=== PATIENT | female | born 1940 | race Caucasian/White ===

== ENCOUNTER 2016-06-30 18:42 | Observation (INO) | payer OTHER ==
[~2016-06-30] VITALS: Ht 167.6 cm; Wt 88.9 kg
[~2016-06-30 18:42] MED LIST: ASPI81CT89 PO; LISI-420 PO
[2016-06-30 18:43] VITALS: BP 135/75
[2016-06-30 19:57] LABS: BASOPHILS # (AUTO) 0.1 K/uL (0.00-0.22); BASOPHILS % (AUTO) 0.7 % (0.0-2.0); EOSINOPHILS # (AUTO) 0.2 K/uL (0-0.4); EOSINOPHILS % (AUTO) 1.7 % (0.0-4.0); HEMOGLOBIN 7.9 g/dL (12.0-16.0); LYMPHOCYTES # (AUTO) 3.2 K/uL (2.5-16.5); LYMPHOCYTES % (AUTO) 27.3 % (20.5-51.1); MEAN CORPUSCULAR HEMOGLOBIN 22 pg (27-31); MEAN CORPUSCULAR HGB CONC 31 g/dL (33-37); MEAN CORPUSCULAR VOLUME 71 fL (80-94); MONOCYTES # (AUTO) 0.7 K/uL (0.8-1.0); MONOCYTES % (AUTO) 6.3 % (1.7-9.3); NEUTROPHILS # (AUTO) 7.5 K/uL (1.8-7.7); PLATELET COUNT (AUTO) 389 K/uL (140-450); RED BLOOD CELL COUNT(AUTO) 3.51 MIL/uL (4.20-5.40); RED CELL DISTRIBUTION WIDTH 15.4 % (11.6-13.7); WHITE BLOOD COUNT (AUTO) 11.7 K/uL (4.8-10.8)
[2016-06-30 20:12] LABS: ANION GAP 10.9 (8-16); CHLORIDE 104 mmol/L (98-107); CREATININE 1.3 mg/dL (0.6-1.3); GLUCOSE 202 mg/dL (74-106); POTASSIUM 3.9 mmol/L (3.5-5.1); SODIUM SERUM 139 mmol/L (136-145); UREA NITROGEN, BLOOD 31 mg/dL (7-18)
[2016-06-30 20:18] LABS: ALANINE AMINOTRANSFERASE 18 U/L (12-78); ALKALINE PHOSPHATASE 99 U/L (46-116); ASPARTATE AMINOTRANSFERASE 19 U/L (15-37); LIPASE 179 U/L (73-393); TOTAL BILIRUBIN 0.3 mg/dL (0.0-1.0); TOTAL PROTEIN, SERUM 6.6 g/dL (6.4-8.2)
[2016-06-30 20:25] LABS: FREE T4 (FREE THYROXINE) 1.01 ng/dL (0.76-1.46); THYROID STIMULATING HORMONE 0.24 uIU/mL (0.34-3.76)
[2016-06-30 20:26] LABS: CREATINE KINASE MB 0.5 ng/mL (0-3.6)
[2016-06-30] MEDS ORDERED: POTASSIUM CHLORIDE 10 MEQ TABER PO PRN (20:50)
[2016-06-30] MEDS ORDERED: MAGNESIUM OXIDE 400 MG TAB PO PRN (20:50)
[2016-06-30] MEDS ORDERED: ONDANSETRON 4 MG/2 ML VIAL IVP PRN (20:50)
[2016-06-30] MEDS ORDERED: ALBUTEROL 0.083% 2.5 MG/3 ML NEBU INH PRN (20:50)
[2016-06-30] MEDS ORDERED: POTASSIUM CHLORIDE 40 MEQ, LIDOCAINE 1% 25 MG in NACL 0.9% 250 ML IV PRN (20:50)
[2016-06-30] MEDS ORDERED: MORPHINE SULFATE 2 MG/ML SYR IVP PRN (20:50)
[2016-06-30] MEDS ORDERED: MAG SULF 2000 MG/WATER PREMIX 50 ML IV PRN (20:50)
[2016-06-30] MEDS ORDERED: BISACODYL 10 MG SUPP RC PRN (20:50)
[2016-06-30] MEDS ORDERED: LORazepam 2 MG/ML VIAL IVP PRN (20:50)
[2016-06-30] MEDS ORDERED: IPRATROPIUM 0.02% 0.5 MG/2.5 ML NEBU INH PRN (20:50)
[2016-06-30] MEDS ORDERED: ACETAMINOPHEN 325 MG TAB PO PRN (20:50)
[2016-06-30] MEDS ORDERED: cloNIDine 0.1 MG TAB PO PRN (20:50)
[2016-06-30] MEDS ORDERED: guaiFENesin DM 200/20 MG-10 ML 10 ML UDC PO PRN (20:50)
[2016-06-30] MEDS ORDERED: DOCUSATE SODIUM 250 MG GELCAP PO PRN (20:50)
[2016-06-30] MEDS ORDERED: SODIUM PHOSPHATE 118 ML ENEM RC PRN (20:50)
[2016-06-30] MEDS ORDERED: ZOLPIDEM 5 MG TAB PO PRN (20:50)
[2016-06-30] MEDS ORDERED: HYDROcodone/APAP 5/325 MG 1 TAB TAB PO PRN ×2 (20:50)
[2016-06-30] MEDS ORDERED: diphenhydrAMINE 50 MG/ML VIAL IVP PRN (20:50)
[2016-06-30] MEDS ORDERED: ACETAMINOPHEN 650 MG SUPP RC PRN (20:50)
[2016-06-30] MEDS ORDERED: ALUMINUM HYD/MAG/SIMETHICONE 30 ML UDC PO PRN (20:50)
[2016-06-30 21:50] VITALS: BP 112/68
[2016-06-30] MEDS: ASPIRIN 325 MG TAB PO ONE (22:15)
[2016-06-30] MEDS: NACL 0.9% 1,000 ML IV ONE (22:16)
[2016-07-01] VITALS: BP 102/55
[2016-07-01] MEDS ORDERED: SIMV20TA1 PO (00:44)
[2016-07-01 04:00] VITALS: BP 136/69
[2016-07-01 08:00] VITALS: BP 116/65
[2016-07-01] MEDS: LISINOPRIL 20 MG TAB PO SCH (08:46)
[2016-07-01 12:00] VITALS: BP 124/73
[2016-07-01] MEDS ORDERED: ASPIRIN 81 MG TAB.CHEW PO PRN (12:10)
[2016-07-01 12:27] LABS: PROTHROMBIN TIME 9.8 secs (10.8-13.4)
[2016-07-01 13:01] LABS: BASOPHILS # (AUTO) 0.2 K/uL (0.00-0.22); BASOPHILS % (AUTO) 1.4 % (0.0-2.0); EOSINOPHILS # (AUTO) 0.2 K/uL (0-0.4); EOSINOPHILS % (AUTO) 1.3 % (0.0-4.0); HEMATOCRIT 32.2 % (36-48); HEMOGLOBIN 10.1 g/dL (12.0-16.0); LYMPHOCYTES # (AUTO) 2.9 K/uL (2.5-16.5); LYMPHOCYTES % (AUTO) 23.3 % (20.5-51.1); MEAN CORPUSCULAR HEMOGLOBIN 23 pg (27-31); MEAN CORPUSCULAR HGB CONC 31 g/dL (33-37); MEAN CORPUSCULAR VOLUME 74 fL (80-94); MONOCYTES # (AUTO) 0.8 K/uL (0.8-1.0); MONOCYTES % (AUTO) 6.2 % (1.7-9.3); NEUTROPHILS # (AUTO) 8.2 K/uL (1.8-7.7); NEUTROPHILS % (AUTO) 67.8 % (42.2-75.2); PLATELET COUNT (AUTO) 379 K/uL (140-450); RED BLOOD CELL COUNT(AUTO) 4.36 MIL/uL (4.20-5.40); RED CELL DISTRIBUTION WIDTH 16.6 % (11.6-13.7); WHITE BLOOD COUNT (AUTO) 12.3 K/uL (4.8-10.8)
[2016-07-01 13:15] VITALS: BP 124/73
[2016-07-01] MEDS ORDERED: SIMVASTATIN 20 MG TAB PO SCH (21:00)
[2016-07-02] MEDS ORDERED: ECOTRIN 81 MG TABEC PO SCH (09:00)
== END 2016-07-01 13:45 | disposition home or self-care (01) ==
LOC: MED 18:42 → MTU 20:47 → UNDOADMOB 20:47
PROVIDERS: ADMIT Hospitalist; ATTEND Hospitalist
DX: D64.9 Anemia, unspecified (principal); E78.5 Hyperlipidemia, unspecified; I10 Essential (primary) hypertension
CPT/HCPCS: 36415; 36430; 71010; 80053; 82550; 82553; 83690; 84439; 84443; 84484; 85025; 85610; 86886; 86900; 86901; 86920; 87081; 93005; 96360; 99291; G0378; J7030; P9016; Q0092

== ENCOUNTER 2016-09-01 11:05 | Emergency (ER) | payer OTHER ==
[~2016-09-01] VITALS: Ht 165.1 cm; Wt 81.6 kg
[~2016-09-01 11:05] MED LIST changes: +SIMV20TA1 PO
[2016-09-01 11:17] VITALS: BP 121/79
[2016-09-01 11:46] LABS: BASOPHILS # (AUTO) 0.2 K/uL (0.00-0.22); BASOPHILS % (AUTO) 1.4 % (0.0-2.0); EOSINOPHILS # (AUTO) 0.2 K/uL (0-0.4); EOSINOPHILS % (AUTO) 1.6 % (0.0-4.0); HEMATOCRIT 36.5 % (36-48); HEMOGLOBIN 11.7 g/dL (12.0-16.0); LYMPHOCYTES # (AUTO) 2.3 K/uL (2.5-16.5); LYMPHOCYTES % (AUTO) 20.6 % (20.5-51.1); MEAN CORPUSCULAR HEMOGLOBIN 26 pg (27-31); MEAN CORPUSCULAR HGB CONC 32 g/dL (33-37); MEAN CORPUSCULAR VOLUME 82 fL (80-94); MONOCYTES # (AUTO) 0.8 K/uL (0.8-1.0); MONOCYTES % (AUTO) 7.3 % (1.7-9.3); NEUTROPHILS # (AUTO) 7.7 K/uL (1.8-7.7); NEUTROPHILS % (AUTO) 69.1 % (42.2-75.2); PLATELET COUNT (AUTO) 362 K/uL (140-450); RED BLOOD CELL COUNT(AUTO) 4.47 MIL/uL (4.20-5.40); RED CELL DISTRIBUTION WIDTH 22.6 % (11.6-13.7); WHITE BLOOD COUNT (AUTO) 11.2 K/uL (4.8-10.8)
[2016-09-01 11:52] LABS: ANISOCYTOSIS 1+; OVALOCYTES 1+
[2016-09-01 11:55] LABS: CALCIUM 8.8 mg/dL (8.5-10.1); CARBON DIOXIDE 27.2 mmol/L (21-32); CHLORIDE 104 mmol/L (98-107); CREATININE 1.1 mg/dL (0.6-1.3); GLUCOSE 77 mg/dL (74-106); POTASSIUM 4.2 mmol/L (3.5-5.1); SODIUM SERUM 140 mmol/L (136-145); UREA NITROGEN, BLOOD 23 mg/dL (7-18)
[2016-09-01 12:01] LABS: ALANINE AMINOTRANSFERASE 21 U/L (12-78); ALBUMIN 3.6 g/dL (3.4-5.0); ALKALINE PHOSPHATASE 97 U/L (46-116); ASPARTATE AMINOTRANSFERASE 19 U/L (15-37); TOTAL BILIRUBIN 0.3 mg/dL (0.0-1.0); TOTAL PROTEIN, SERUM 7.8 g/dL (6.4-8.2)
--- NOTE | 2016-09-01 12:20 | NUR ---
PT CAME TO ER DUE TO LFT KNEE PAIN X 1 WK 10/10 SHARP;HX; HTN, LOW IRON;RX; ASPIRIN 81 MG QD, LISINOPRIL 20MG QD;DENIES N/V/D; SKIN IS PINK/WARM/DRY; AAOX4 WITH EVEN AND STEADY GAIT; LUNGS CLEAR BL; HR EVEN AND REGULAR; PT DENIES ANY FEVER, CP, SOB, OR COUGH AT THIS TIME; PATIENT STATES PAIN OF 10/10 AT THIS TIME; VSS; PATIENT POSITIONED FOR COMFORT; HOB ELEVATED; BEDRAILS UP X2; BED DOWN.
[2016-09-01] MEDS ORDERED: KETOROLAC 30 MG/ML VIAL IVP ONE (12:30)
--- NOTE | 2016-09-01 13:20 | NUR ---
pt sitting on bed;waiting for xray result.
--- NOTE | 2016-09-01 13:34 | NUR ---
expalained to pt that result is not available.pt verbalizes understanding.
[2016-09-01 13:44] LABS: APPEARANCE,URINE CLEAR (CLEAR); BILIRUBIN,URINE NEGATIVE (NEGATIVE); BLOOD, URINE NEGATIVE (NEGATIVE); COLOR,URINE YELLOW (YELLOW); LEUKOCYTE ESTERASE ,URINE NEGATIVE (NEGATIVE); NITRITE, URINE NEGATIVE (NEGATIVE); PH,URINE 5.5 (5.0-9.0); PROTEIN,URINE NEGATIVE (NEGATIVE); UGLUCOSE NEGATIVE (NEGATIVE); UROBILINOGEN,URINE 0.2 EU/dL (0.2 - 1)
[2016-09-01 13:46] VITALS: BP 118/76
[2016-09-01 13:51] LABS: BACTERIA,URINE None Seen /HPF (None Seen); RBC,URINE NONE SEEN /HPF (0-5); WBC,URINE 0-5 (RARE) /HPF (0-5)
[2016-09-01 13:52] LABS: SQUAMOUS EPITHELIAL CELL,UR Rare /LPF (0-3 (FEW))
== END 2016-09-01 13:46 | disposition home or self-care (01) ==
LOC: MED 11:05
DX: M17.12 Unilateral primary osteoarthritis, left knee (principal); I10 Essential (primary) hypertension
CPT/HCPCS: 36415; 73562; 80053; 81001; 85025; 85651; 96374; 99285; J1885

== ENCOUNTER 2018-08-17 11:17 | Emergency (ER) | payer MEDICARE, OTHER ==
[~2018-08-17] VITALS: Ht 160 cm; Wt 83.5 kg
[~2018-08-17 11:17] MED LIST changes: +ASPI-1718 PO; -ASPI81CT89 PO
[2018-08-17 11:22] VITALS: BP 127/79
--- NOTE | 2018-08-17 11:25 | NUR ---
BIB DAUGHTER. AAO X4. PT REFFERED TO ED FROM PCP FOR ABNORMAL LABS. HEMOGLOBIN 8. PT DENIES CP, SOB, DIZZINESS, N/V. PT HAS STEADY GAIT. NO SIGNS AND SYMPTOMS OF DISTRESS NOTED. PT PLACED ON FULL CPA TAX. ER TO EVALUATE PT.
--- NOTE | 2018-08-17 11:30 | NUR ---
DR FARRELL AT BEDSIDE FOR PT EVAL
[2018-08-17] MEDS ORDERED: NACL 0.9% 500 ML IV SCH (11:38)
--- NOTE | 2018-08-17 11:48 | NUR ---
RADIOLOGY AT BEDSIDE.
[2018-08-17 12:12] LABS: BASOPHILS # (AUTO) 0.1 K/uL (0.00-0.22); BASOPHILS % (AUTO) 0.8 % (0.0-2.0); EOSINOPHILS # (AUTO) 0.1 K/uL (0-0.4); EOSINOPHILS % (AUTO) 0.8 % (0.0-4.0); HEMATOCRIT 33.5 % (36-48); HEMOGLOBIN 10.9 g/dL (12.0-16.0); LYMPHOCYTES # (AUTO) 2.7 K/uL (2.5-16.5); LYMPHOCYTES % (AUTO) 25.8 % (20.5-51.1); MEAN CORPUSCULAR HEMOGLOBIN 29 pg (27-31); MEAN CORPUSCULAR HGB CONC 33 g/dL (33-37); MEAN CORPUSCULAR VOLUME 89.1 fL (80-94); MONOCYTES # (AUTO) 0.7 K/uL (0.8-1.0); MONOCYTES % (AUTO) 7.1 % (1.7-9.3); NEUTROPHILS # (AUTO) 6.9 K/uL (1.8-7.7); NEUTROPHILS % (AUTO) 65.5 % (42.2-75.2); PLATELET COUNT (AUTO) 355 K/uL (140-450); RED BLOOD CELL COUNT(AUTO) 3.76 MIL/uL (4.20-5.40); RED CELL DISTRIBUTION WIDTH 13.9 % (11.6-13.7); WHITE BLOOD COUNT (AUTO) 10.5 K/uL (4.8-10.8)
[2018-08-17 12:28] LABS: ANION GAP 12.2 (8-16); CHLORIDE 103 mmol/L (98-107); CREATININE 1.1 mg/dL (0.6-1.3); GLUCOSE 98 mg/dL (74-106); POTASSIUM 4.2 mmol/L (3.5-5.1); SODIUM SERUM 138 mmol/L (136-145); UREA NITROGEN, BLOOD 19 mg/dL (7-18)
[2018-08-17 12:32] LABS: PROTHROMBIN TIME 9.4 secs (10.8-13.4)
[2018-08-17 12:35] LABS: ALBUMIN 3.3 g/dL (3.4-5.0); ASPARTATE AMINOTRANSFERASE 15 U/L (15-37); TOTAL BILIRUBIN 0.3 mg/dL (0.0-1.0)
--- NOTE | 2018-08-17 12:48 | NUR ---
PT AMBULATED TO THE BATHROOM WITH STEADY GAIT.
--- NOTE | 2018-08-17 13:00 | NUR ---
PT AAO X4. CONVERSATING APPROPRIATELY. NO SIGNS AND SYMPTOMS OF DISTRESS NOTED. VSS.
[2018-08-17 13:56] VITALS: BP 105/68
--- NOTE | 2018-08-17 13:56 | NUR ---
Patient discharged with v/s stable. Written and verbal after care instructions given and explained. Patient verbalized understanding. Ambulatory with steady gait. All questions addressed prior to discharge. Advised to follow up with PMD.
--- NOTE | 2018-08-19 13:13 | NUR ---
Late entry. Confirmed with RN that 0.9 NS 500 ml IV bous completed at 1250
== END 2018-08-17 13:56 | disposition home or self-care (01) ==
LOC: MED 11:17
DX: R79.9 Abnormal finding of blood chemistry, unspecified (principal); R42 Dizziness and giddiness; I10 Essential (primary) hypertension; Z79.82 Long term (current) use of aspirin; Z79.899 Other long term (current) drug therapy
CPT/HCPCS: 36415; 71045; 80053; 85025; 85610; 85730; 86886; 86900; 86901; 93005; 96360; 99284; J7030; Q0092; 86920

== ENCOUNTER 2019-04-04 19:23 | Emergency (ER) | payer MEDICARE, OTHER ==
[~2019-04-04] VITALS: Ht 167.6 cm; Wt 82.1 kg
[2019-04-04 19:25] VITALS: BP 128/74
--- NOTE | 2019-04-04 19:28 | NUR ---
TO LOBBY A/W BED AMBULATORY
--- NOTE | 2019-04-04 20:59 | NUR ---
PT TAKEN TO CHAIR A
--- NOTE | 2019-04-04 21:06 | NUR ---
78 Y/O FEMALE C/O LT EAR PAIN AND BLEEDING X 2 DAYS. PT STATES SHE WAS GIVEN HEARING AIDS 2 WKS AGO. STATES RED DRAINAGE. 8/10 PAIN. DENIES FEVER. PT SITTING IN [facility] VSS.
[2019-04-04 21:10] VITALS: BP 128/74
== END 2019-04-04 21:09 | disposition home or self-care (01) ==
LOC: MED 19:23
DX: H72.92 Unspecified perforation of tympanic membrane, left ear (principal); I10 Essential (primary) hypertension; Z79.82 Long term (current) use of aspirin; Z79.899 Other long term (current) drug therapy
CPT/HCPCS: 99283

== ENCOUNTER 2020-07-31 09:37 | Emergency (ER) | payer MEDICARE, OTHER ==
[~2020-07-31] VITALS: Ht 157.5 cm; Wt 86.6 kg
[~2020-07-31 09:37] MED LIST changes: -ASPI-1718 PO; +ASPI-1822 PO; -LISI-420 PO; +LISI-487 PO
[2020-07-31 09:41] VITALS: BP 126/77
--- NOTE | 2020-07-31 09:45 | NUR ---
Ambulated to bed 6
--- NOTE | 2020-07-31 09:53 | NUR ---
PT C/O NOSE BLEED, STATED THAT SHE HAD HAVE 3 NOSEBLEED IN THE PAST MONTHS. PT DENIES HAVING TRAUMA TO THE NOSE, ANY ALLERGIES, ANY RUNNY NOSE. STATED THAT THE RIGHT NOSTRIL HAS MORE BLEEDING. NO BLEEDING NOTED AT THIS MOMENT. PMH: HTN, HIGH CHOLESTEROL SURGERY: ABDOMINAL HERNIA RX: ASA, ZOCOR
--- NOTE | 2020-07-31 10:12 | NUR ---
QUARRY BOSS AT BEDSIDE DRAWING BLOOD.
[2020-07-31 10:21] LABS: BASOPHILS # (AUTO) 0.1 K/uL (0.00-0.22); BASOPHILS % (AUTO) 0.7 % (0.0-2.0); EOSINOPHILS # (AUTO) 0.1 K/uL (0-0.4); HEMATOCRIT 32.8 % (36-48); HEMOGLOBIN 10.8 g/dL (12.0-16.0); LYMPHOCYTES # (AUTO) 2.2 K/uL (2.5-16.5); LYMPHOCYTES % (AUTO) 23.7 % (20.5-51.1); MEAN CORPUSCULAR HEMOGLOBIN 29 pg (27-31); MEAN CORPUSCULAR HGB CONC 33 g/dL (33-37); MONOCYTES # (AUTO) 0.7 K/uL (0.8-1.0); MONOCYTES % (AUTO) 7.4 % (1.7-9.3); NEUTROPHILS # (AUTO) 6.4 K/uL (1.8-7.7); NEUTROPHILS % (AUTO) 67.2 % (42.2-75.2); PLATELET COUNT (AUTO) 305 K/uL (140-450); RED BLOOD CELL COUNT(AUTO) 3.68 MIL/uL (4.20-5.40); WHITE BLOOD COUNT (AUTO) 9.4 K/uL (4.8-10.8)
[2020-07-31 10:36] LABS: PROTHROMBIN TIME 9.7 secs (10.8-13.4)
[2020-07-31 10:37] LABS: ALBUMIN 3.3 g/dL (3.4-5.0); ANION GAP 12.1 (8-16); ASPARTATE AMINOTRANSFERASE 21 U/L (15-37); CARBON DIOXIDE 25.4 mmol/L (21-32); CHLORIDE 104 mmol/L (98-107); CREATININE 1.2 mg/dL (0.6-1.3); GLUCOSE 96 mg/dL (74-106); POTASSIUM 4.5 mmol/L (3.5-5.1); SODIUM SERUM 137 mmol/L (136-145); TOTAL BILIRUBIN 0.5 mg/dL (0.0-1.0); UREA NITROGEN, BLOOD 19 mg/dL (7-18)
--- NOTE | 2020-07-31 10:49 | NUR ---
Verbal consent obtained from patient to give update to father in ER lobby.
[2020-07-31 10:51] VITALS: BP 126/77
== END 2020-07-31 10:53 | disposition home or self-care (01) ==
LOC: MED 09:37
DX: R04.0 Epistaxis (principal); I10 Essential (primary) hypertension; Z79.899 Other long term (current) drug therapy; Z79.82 Long term (current) use of aspirin; Z98.890 Other specified postprocedural states
CPT/HCPCS: 36415; 80053; 85025; 85610; 85730; 99283

== ENCOUNTER 2021-11-25 12:16 | Emergency (ER) | payer MEDICARE, OTHER ==
[~2021-11-25] VITALS: Ht 160 cm; Wt 79.4 kg
[~2021-11-25 12:16] MED LIST changes: +SIMV-372 PO; -SIMV20TA1 PO
[2021-11-25 12:22] VITALS: BP 104/70
[2021-11-25] MEDS ORDERED: DIPH25TA53 PO (13:16)
[2021-11-25] MEDS ORDERED: HYDR28CR38 TP (13:16)
--- NOTE | 2021-11-25 13:27 | NUR ---
Patient discharged with v/s stable. Written and verbal after care instructions given and explained. Patient alert, oriented and verbalized understanding of instructions. Ambulatory with steady gait. All questions addressed prior to discharge. ID band removed. Patient advised to follow up with PMD. Rx of HYDROCORTISONE, BENADRYL given. Patient educated on indication of medication including possible reaction and side effects. Opportunity to ask questions provided and answered.
== END 2021-11-25 13:27 | disposition home or self-care (01) ==
LOC: MED 12:16
DX: R21 Rash and other nonspecific skin eruption (principal)
CPT/HCPCS: 99283

== ENCOUNTER 2021-11-27 12:58 | Emergency (ER) | payer MEDICARE, OTHER ==
[~2021-11-27] VITALS: Ht 165.1 cm; Wt 82.7 kg
[~2021-11-27 12:58] MED LIST changes: +DIPH25TA53 PO; +HYDR28CR38 TP
[2021-11-27 13:32] VITALS: BP 135/63
--- NOTE | 2021-11-27 13:57 | NUR ---
MANDY FRANCIS C/O RASH X 4 DAYS. SEEN HERE 2 DAYS AGO SAME S/S. PMH: HTN
[2021-11-27] MEDS ORDERED: FAMO-92 PO (15:12)
[2021-11-27] MEDS ORDERED: CETI10SG1 PO (15:12)
[2021-11-27] MEDS: diphenhydrAMINE 50 MG/ML VIAL IM ONE (15:14)
--- NOTE | 2021-11-27 15:35 | NUR ---
Patient discharged with v/s stable. Written and verbal after care instructions given and explained. Patient alert, oriented and verbalized understanding of instructions. Ambulatory with steady gait. All questions addressed prior to discharge. ID band removed. Patient advised to follow up with PMD. Rx of ZYRTEC,PEPCID given. Patient educated on indication of medication including possible reaction and side effects. Opportunity to ask questions provided and answered.
[2021-11-27 15:36] VITALS: BP 120/58
== END 2021-11-27 15:35 | disposition home or self-care (01) ==
LOC: MED 12:58
DX: L50.9 Urticaria, unspecified (principal); I10 Essential (primary) hypertension; Z79.899 Other long term (current) drug therapy; Z98.890 Other specified postprocedural states
CPT/HCPCS: 96372; 99283; J1200

== ENCOUNTER 2023-04-16 13:06 | Emergency (ER) | payer MEDICARE, OTHER ==
[~2023-04-16] VITALS: Ht 165.1 cm; Wt 86.2 kg
[~2023-04-16 13:06] MED LIST changes: +CETI10SG1 PO; +FAMO-92 PO
[2023-04-16 13:14] VITALS: BP 125/76; PULSE 77; RESP 17; TEMP 97.4; O2SAT 98
[2023-04-16 13:25] VITALS: TEMP 97.4
[2023-04-16 13:40] LABS: APPEARANCE,URINE CLEAR (CLEAR); BILIRUBIN,URINE NEGATIVE (NEGATIVE); BLOOD, URINE NEGATIVE (NEGATIVE); COLOR,URINE YELLOW (YELLOW); LEUKOCYTE ESTERASE ,URINE NEGATIVE (NEGATIVE); NITRITE, URINE NEGATIVE (NEGATIVE); PROTEIN,URINE NEGATIVE (NEGATIVE); UGLUCOSE NEGATIVE (NEGATIVE); UROBILINOGEN,URINE 0.2 EU/dL (0.2 - 1)
[2023-04-16] MEDS: MORPHINE SULFATE 2 MG/ML SYR IVP ONE (13:55)
[2023-04-16 14:08] LABS: BASOPHILS # (AUTO) 0.1 K/uL (0.00-0.22); BASOPHILS % (AUTO) 0.7 % (0.0-2.0); EOSINOPHILS # (AUTO) 0.1 K/uL (0-0.4); EOSINOPHILS % (AUTO) 1.3 % (0.0-4.0); HEMATOCRIT 32.5 % (36-48); LYMPHOCYTES # (AUTO) 3.2 K/uL (2.5-16.5); LYMPHOCYTES % (AUTO) 30.3 % (20.5-51.1); MEAN CORPUSCULAR HEMOGLOBIN 30 pg (27-31); MEAN CORPUSCULAR HGB CONC 34 g/dL (33-37); MEAN CORPUSCULAR VOLUME 88.9 fL (80-94); MONOCYTES # (AUTO) 0.8 K/uL (0.8-1.0); MONOCYTES % (AUTO) 7.3 % (1.7-9.3); NEUTROPHILS # (AUTO) 6.5 K/uL (1.8-7.7); NEUTROPHILS % (AUTO) 60.4 % (42.2-75.2); PLATELET COUNT (AUTO) 309 K/uL (140-450); RED BLOOD CELL COUNT(AUTO) 3.66 MIL/uL (4.20-5.40); RED CELL DISTRIBUTION WIDTH 14.2 % (11.6-13.7); WHITE BLOOD COUNT (AUTO) 10.7 K/uL (4.8-10.8)
[2023-04-16 14:27] LABS: ALANINE AMINOTRANSFERASE 21 U/L (12-78); ALBUMIN 3.3 g/dL (3.4-5.0); ALKALINE PHOSPHATASE 67 U/L (50-136); ANION GAP 9.3 (8-16); ASPARTATE AMINOTRANSFERASE 22 U/L (15-37); CARBON DIOXIDE 30.7 mmol/L (21-32); CHLORIDE 103 mmol/L (98-107); CREATININE 1.3 mg/dL (0.6-1.3); GLUCOSE 94 mg/dL (74-106); LIPASE 32 U/L (16-77); SODIUM SERUM 139 mmol/L (136-145); TOTAL BILIRUBIN 0.3 mg/dL (0.0-1.0); TOTAL PROTEIN, SERUM 8.3 g/dL (6.4-8.2); UREA NITROGEN, BLOOD 22 mg/dL (7-18)
[2023-04-16 15:12] VITALS: BP 142/77; PULSE 72; RESP 18; O2SAT 98
[2023-04-16] MEDS ORDERED: ACET-10509 PO (17:25)
== END 2023-04-16 17:40 | disposition home or self-care (01) ==
LOC: MED 13:06
DX: K44.9 Diaphragmatic hernia without obstruction or gangrene (principal); N23 Unspecified renal colic; K76.0 Fatty (change of) liver, not elsewhere classified; K57.30 Diverticulosis of large intestine without perforation or abscess without bleeding; D25.9 Leiomyoma of uterus, unspecified; I10 Essential (primary) hypertension; E78.5 Hyperlipidemia, unspecified; Z98.890 Other specified postprocedural states; Z79.899 Other long term (current) drug therapy; Z79.82 Long term (current) use of aspirin
CPT/HCPCS: 36415; 74177; 80053; 81003; 83690; 84484; 85025; 93005; 96374; 99285; J2270; Q9967

== ENCOUNTER 2023-08-30 13:05 | Emergency (ER) | payer MEDICARE, OTHER ==
[~2023-08-30] VITALS: Ht 161.3 cm; Wt 78.2 kg
[~2023-08-30 13:05] MED LIST changes: +ACET-10509 PO; -LISI-487 PO; +LISI-953 PO
[2023-08-30 13:15] VITALS: BP 103/62; PULSE 89; RESP 18; TEMP 98.3; O2SAT 97
[2023-08-30 14:59] LABS: BASOPHILS # (AUTO) 0.1 K/uL (0.00-0.22); BASOPHILS % (AUTO) 0.3 % (0.0-2.0); EOSINOPHILS # (AUTO) 0.1 K/uL (0-0.4); EOSINOPHILS % (AUTO) 0.5 % (0.0-4.0); HEMATOCRIT 30.3 % (36-48); HEMOGLOBIN 9.8 g/dL (12.0-16.0); LYMPHOCYTES # (AUTO) 3.1 K/uL (2.5-16.5); LYMPHOCYTES % (AUTO) 17.3 % (20.5-51.1); MEAN CORPUSCULAR HEMOGLOBIN 29 pg (27-31); MEAN CORPUSCULAR HGB CONC 32 g/dL (33-37); MEAN CORPUSCULAR VOLUME 88.3 fL (80-94); MONOCYTES # (AUTO) 1.1 K/uL (0.8-1.0); MONOCYTES % (AUTO) 6.2 % (1.7-9.3); NEUTROPHILS # (AUTO) 13.7 K/uL (1.8-7.7); NEUTROPHILS % (AUTO) 75.7 % (42.2-75.2); PLATELET COUNT (AUTO) 353 K/uL (140-450); RED BLOOD CELL COUNT(AUTO) 3.43 MIL/uL (4.20-5.40); RED CELL DISTRIBUTION WIDTH 14.6 % (11.6-13.7); WHITE BLOOD COUNT (AUTO) 18.2 K/uL (4.8-10.8)
[2023-08-30 15:09] LABS: ANION GAP 12.1 (8-16); CARBON DIOXIDE 27.3 mmol/L (21-32); CHLORIDE 100 mmol/L (98-107); CREATININE 1.7 mg/dL (0.6-1.3); GLUCOSE 105 mg/dL (74-106); POTASSIUM 4.4 mmol/L (3.5-5.1); SODIUM SERUM 135 mmol/L (136-145); UREA NITROGEN, BLOOD 30 mg/dL (7-18)
[2023-08-30 15:28] LABS: ALANINE AMINOTRANSFERASE 17 U/L (12-78); ALBUMIN 3.3 g/dL (3.4-5.0); ALKALINE PHOSPHATASE 63 U/L (50-136); ASPARTATE AMINOTRANSFERASE 18 U/L (15-37); BILIRUBIN,DIRECT 0.1 mg/dL (0.0-0.3); LIPASE 29 U/L (16-77); TOTAL BILIRUBIN 0.4 mg/dL (0.0-1.0); TOTAL PROTEIN, SERUM 7.3 g/dL (6.4-8.2)
[2023-08-30 15:40] LABS: APPEARANCE,URINE SL CLOUDY (CLEAR); BILIRUBIN,URINE NEGATIVE (NEGATIVE); BLOOD, URINE NEGATIVE (NEGATIVE); COLOR,URINE YELLOW (YELLOW); LEUKOCYTE ESTERASE ,URINE 1+ (NEGATIVE); NITRITE, URINE NEGATIVE (NEGATIVE); PROTEIN,URINE NEGATIVE (NEGATIVE); UGLUCOSE NEGATIVE (NEGATIVE); UROBILINOGEN,URINE 0.2 EU/dL (0.2 - 1)
[2023-08-30 15:43] LABS: RBC,URINE 0 /HPF (0-5); WBC,URINE 0-5 /HPF (0-5)
[2023-08-30 15:44] LABS: BACTERIA,URINE 1+ /HPF (None Seen); MUCUS,URINE None Seen /LPF (None Seen); SQUAMOUS EPITHELIAL CELL,UR 0-3 (FEW) /LPF (0-3 (FEW))
[2023-08-30] MEDS: NACL 0.9% 1,000 ML IV ONE (16:12)
[2023-08-30] MEDS ORDERED: BEN10 PO (16:33)
[2023-08-30] MEDS ORDERED: AMOX1TAB8 PO (16:33)
[2023-08-30 16:59] VITALS: BP 104/67; PULSE 77; RESP 18; TEMP 98.7; O2SAT 98
== END 2023-08-30 16:59 | disposition left against medical advice (07) ==
LOC: MED 13:05
DX: K52.9 Noninfective gastroenteritis and colitis, unspecified (principal); D72.829 Elevated white blood cell count, unspecified; K44.9 Diaphragmatic hernia without obstruction or gangrene; I10 Essential (primary) hypertension; Z79.899 Other long term (current) drug therapy
CPT/HCPCS: 36415; 71045; 74176; 80048; 80076; 81001; 83690; 84484; 85025; 87086; 93005; 96360; 99285; J7030; Q0092